=== PATIENT | female | born 1960 | race African-American/Black ===

== ENCOUNTER 2018-04-02 23:21 | Observation (INO) | payer MEDICAID ==
[2018-04-03 01:05] LABS: ABS Basophils 0.1 10^3/ul (0-0.2); ABS Eosinophils 0.1 10^3/ul (0-0.6); ABS Lymphocytes 2.2 10^3/ul (1.0-4.8); ABS Monocytes 0.5 10^3/ul (0-0.8); ABS Neutrophils 4.7 10^3/ul (1.5-7.7); ABS Nucleated RBC 0 10^3/ul; Eosinophil % 0.9 % (0-6); Hematocrit 38 % (35-47); Hemoglobin 12.2 g/dl (12.0-16.0); Lymphocyte % 29.1 % (25-47); Mean Corpuscular HGB Conc 33 g/dl (31-36); Mean Corpuscular Hemoglobin 26 pg (27-31); Mean Corpuscular Volume 80 fL (80-97); Nucleated Red Blood Cells % 0.1; Platelet Count 328 10^3/ul (150-450); Red Cell Distribution Width 17 % (10.5-15); White Blood Count 7.4 10^3/ul (3.5-10.8)
[2018-04-03 01:25] LABS: EGFR Non-African American 62.1 (>60); INR 0.85 (0.77-1.02)
[2018-04-03] MEDS ORDERED: Morphine VIAL* 4 MG/ML VIAL (1 ml vial) IV ONE (01:29)
[2018-04-03] MEDS ORDERED: NS 0.9% 1000 ML* 1,000 ML IV ONE (01:35)
[2018-04-03 02:39] LABS: Urine Appearance Clear; Urine Blood Negative (Negative); Urine Color Colorless; Urine Ketones Negative (Negative); Urine Protein Negative (Negative); Urine Specific Gravity 1.008 (1.010-1.030); Urine Urobilinogen Negative (Negative)
[2018-04-03] MEDS ORDERED: Tetan/Diph/Pertus SYR(Tdap)* 0.5 ML SYR(BOOSTRIX) use SYR IM ONE (04:27)
[2018-04-03] MEDS ORDERED: KCL 10 MEQ/50 ML IVPREMIX* 10 MEQ/50 ML BAG IV ONE (04:33)
[2018-04-03] MEDS ORDERED: Morphine VIAL* 4 MG/ML VIAL (1 ml vial) IV PRN (06:44)
[2018-04-03] MEDS ORDERED: Acetaminophen TAB* 325 MG PO PRN (06:44)
[2018-04-03 07:50] LABS: ABS Basophils 0 10^3/ul (0-0.2); ABS Eosinophils 0.1 10^3/ul (0-0.6); ABS Lymphocytes 1.7 10^3/ul (1.0-4.8); ABS Monocytes 0.6 10^3/ul (0-0.8); ABS Neutrophils 5.5 10^3/ul (1.5-7.7); ABS Nucleated RBC 0 10^3/ul; Hematocrit 34 % (35-47); Hemoglobin 11.4 g/dl (12.0-16.0); Lymphocyte % 21.6 % (25-47); Mean Corpuscular HGB Conc 33 g/dl (31-36); Mean Corpuscular Hemoglobin 27 pg (27-31); Mean Corpuscular Volume 80 fL (80-97); Mean Platelet Volume 8.2 um3 (7.4-10.4); Nucleated Red Blood Cells % 0.1; Platelet Count 317 10^3/ul (150-450); Red Cell Distribution Width 17 % (10.5-15)
--- NOTE | 2018-04-03 08:04 | RAD ---
INDICATION: Fall. CT of the brain, facial bones, cervical spine, thoracic spine, lumbar spine, and chest/abdomen/pelvis. Pending request for CTA of the chest COMPARISON: None TECHNIQUE: Axial source images were obtained from the thoracic inlet to the symphysis pubis following administration of oral contrast only. 105 mL Omnipaque 300 was utilized. Coronal and sagittal reconstructed images were acquired. CHEST FINDINGS: Neck/thyroid: The visualized neck to include the thyroid appear normal. Chest wall: There are no acute abnormalities of the bony thorax or chest wall. There is no supraclavicular, infraclavicular, or axillary lymphadenopathy. Lungs : There are no pulmonary parenchymal masses or infiltrates. There is mild gravity dependent atelectasis. There is no pneumothorax. The pulmonary interstitium appears normal. There are no endobronchial lesions. Cardiomediastinal structures: The heart is normal in size. There is no pericardial effusion. There is no evidence of aortic aneurysm or dissection. The pulmonary vessels appear normal. There is no mediastinal or hilar adenopathy. The esophagus appears normal. Pleura : There are no pleural-based masses or effusions. ABDOMINAL/PELVIC FINDINGS: Liver: The liver is normal in size. There are no masses. There is no ductal dilatation. Gallbladder: Cholecystectomy. Spleen: The spleen is normal in size. There are no masses. Pancreas: There is no evidence of pancreatic mass or ductal dilatation. Adrenal glands: There is no evidence of adrenal mass. Kidneys: The kidneys are normal in size and position. There are prompt nephrograms and there is prompt excretion bilaterally. There are no renal parenchymal masses. There is no evidence of nephrolithiasis. Adenopathy: There is no evidence of adenopathy by size criteria. Fluid collections: There are no free or localized fluid collections. Vessels:The aorta and IVC appear normal GI tract: The bowel is limited as no oral contrast was given per ED request. There are moderate diverticula of the colon without CT findings specific for acute diverticulitis. The appendix is visualized and appears normal. The terminal ileum and ileocecal valve are normal. There is a small hiatal hernia. Pelvic organs: The uterus and adnexa appear normal Bladder: There are no bladder masses. Abdominal and pelvic soft tissues: The extraperitoneal abdominal and pelvic soft tissues appear normal.. Osseous structures: There are no acute osseous findings. IMPRESSION: NO ACUTE CT FINDINGS OF THE CHEST /ABDOMEN, OR PELVIS. SCATTERED DIVERTICULA. Small hiatal hernia.
[2018-04-03 08:24] LABS: EGFR Non-African American 83.5 (>60)
--- NOTE | 2018-04-03 08:37 | RAD ---
INDICATION: Fall. Possible back injury. COMPARISON: CT chest/abdomen/pelvis same date TECHNIQUE: Noncontrast axial source images was performed from the thoracic inlet to the level the hemidiaphragms. Coronal and and sagittal reformatted images were generated. FINDINGS: Vertebrae: There is no fracture or acute focal bony lesion. Alignment: The thoracic vertebrae are normally aligned. Central Canal: There are no significant CT abnormalities of the central canal or foramina. MR imaging is a more sensitive method to evaluate the canal and foramina. Intervertebral disc spaces: The disc spaces are maintained. Soft tissues: There are no paravertebral soft tissue abnormalities. IMPRESSION: NO THORACIC SPINE FRACTURE
--- NOTE | 2018-04-03 08:39 | RAD ---
INDICATION: Fall. Back pain COMPARISON: CT chest/abdomen/pelvis same date TECHNIQUE: Noncontrast axial source images was performed from the thoracolumbar junction to the sacrum. Coronal and and sagittal reformatted images were generated. FINDINGS: Vertebrae: There is no fracture or acute focal bony lesion. Alignment: The there is mild levoscoliosis. Central Canal: There are no significant CT abnormalities of the central canal or foramina. MR imaging is a more sensitive method to evaluate the canal and foramina. Intervertebral disc spaces: The disc spaces are maintained. Soft tissues: The paravertebral soft tissues are normal. Other: None IMPRESSION: NO ACUTE LUMBAR SPINE FRACTURE.
--- NOTE | 2018-04-03 08:51 | RAD ---
INDICATION: Facial injury. Evaluate for intracranial injury. COMPARISON: None TECHNIQUE: Noncontrast axial source images were acquired from the skull base to the vertex. FINDINGS: Ventricles/sulci: The ventricles and cisterns are normal in size and configuration for age. Brain parenchyma: There is no focal parenchymal finding, evidence of intracranial mass, or intracranial mass effect. Intracranial hemorrhage:None. Extra-axial spaces: There are no abnormal extra axial fluid collections or evidence of extra-axial mass. Calvarium: There is no calvarial fracture or other calvarial abnormality. Scalp: There is right suprarenal soft tissue swelling with a scalp hematoma and laceration. There is right-sided proptosis. Please refer to separate facial CT report. Paranasal sinuses/mastoid: Circumferential mucoperiosteal thickening right maxillary antrum. Ethmoid sinus disease. Other: None. IMPRESSION: No acute intracranial findings. Abnormalities about the right globe are described in a separate report.
[2018-04-03] MEDS: NS 0.9% w/ 20 Meq KCL 1000 ML* 1,000 ML IV SCH ×2 (08:59→23:03)
--- NOTE | 2018-04-03 09:23 | RAD ---
INDICATION: Fall. Facial injury. COMPARISON: None TECHNIQUE: Axial source images were acquired from the vertex of the mandible through the orbits. Coronal and sagittal reconstructed images were acquired. FINDINGS: Bones: There is a fracture the medial wall of the right orbit. There is orbital emphysema and proptosis. There are probably minimally displaced nasal bone fractures. There are no additional fractures.. Orbits: As noted above there is a fracture of the right orbit. There is emphysema with proptosis. There is no evidence of globe rupture. There is no retrobulbar mass. There is soft tissue swelling anterior and superior to the right orbit. Paranasal sinuses: Circumferential mucosal thickening right maxillary antrum. Opacification of multiple ethmoid air cells. Brain: There are no acute abnormalities of the visualized brain parenchyma. See separate report Soft tissues: Soft tissues prominence with subcutaneous emphysema and right supraorbital laceration Other: None The visualized soft tissue elements about the neck appear normal. IMPRESSION: FRACTURE THE MEDIAL WALL OF THE RIGHT ORBIT. ORBITAL EDEMA WITH PROPTOSIS. SUPRAORBITAL SOFT TISSUE SWELLING WITH LACERATION.
--- NOTE | 2018-04-03 09:23 | RAD ---
INDICATION: Fall. Possible neck injury. COMPARISON: None TECHNIQUE: Noncontrast axial source images was performed from the skull base to the thoracic inlet. Coronal and and sagittal reformatted images were generated. FINDINGS: Vertebrae: There is no fracture or acute focal bony lesion. Alignment: The craniocervical junction appears normal. The cervical vertebrae are normally aligned. Central Canal: There are no significant CT abnormalities of the central canal or foramina. MR imaging is a more sensitive method to evaluate the canal and foramina. Intervertebral disc spaces: The disc spaces are maintained. Brain: The visualized brain appears unremarkable. Soft tissues: The visualized soft tissue elements of the neck are unremarkable. The prevertebral soft tissues appear normal. The lung apices are clear. IMPRESSION: NO ACUTE CERVICAL SPINE FRACTURE
[2018-04-03] MEDS ORDERED: Iohexol 350* (CONTRAST) 500 ML MDV IV ONE (09:40)
--- NOTE | 2018-04-03 09:53 | RAD ---
INDICATION: Chest pain. Short of breath. Evaluate for pulmonary embolus. COMPARISON: CTA chest/abdomen/pelvis April 03, 2018 TECHNIQUE: Axial source images were obtained from the thoracic inlet to the hemidiaphragms following administration of [address] angiographic technique was utilized. Coronal and sagittal reconstructed images were acquired. CHEST FINDINGS: Neck/thyroid: The visualized neck to include the thyroid appear normal. Chest wall: There are no acute abnormalities of the bony thorax or chest wall. There is no supraclavicular, infraclavicular, or axillary lymphadenopathy. Lungs : There are no pulmonary parenchymal masses or infiltrates. The pulmonary interstitium appears normal. There are no endobronchial lesions. Cardiomediastinal structures: There is no CT evidence of acute pulmonary embolic disease. The heart is normal in size. There is no pericardial effusion. There is no evidence of aortic aneurysm or dissection. There is no mediastinal or hilar adenopathy. The esophagus appears normal. Pleura : There are no pleural-based masses or effusions. Other: None. IMPRESSION: NO CT EVIDENCE OF ACUTE PULMONARY EMBOLIC DISEASE. LUNGS CLEAR.
--- NOTE | 2018-04-03 13:04 | HP ---
ADMISSION HISTORY AND PHYSICAL: DATE OF ADMISSION: 04/03/18 CHIEF COMPLAINT: Fall. HISTORY OF PRESENT ILLNESS: Ms. John is a 57-year-old woman who was visiting [place] to celebrate her daughter's birthday when she was walking in her kitchen at home and then suddenly found herself on the floor. She injured her anterior chest and her left orbital area in the fall. The patient states she was feeling well prior to this episode of syncope. She had no fevers, URI, abdominal pain, diarrhea, or dysuria. She did not have any presyncopal feeling or palpitations prior to the loss of consciousness and fall. The patient denies any chest pain, although her chest feels tender to her in the left upper anterior chest. The patient denies any history of syncope. PAST MEDICAL HISTORY: She reports she has a brain aneurysm that is small. She has hypertension, osteoporosis, chronic headaches possibly migraines, hyperlipidemia and asthma. PAST SURGICAL HISTORY: She had a cholecystectomy in the past and her right ankle ORIF. MEDICATIONS: On admission are unclear, but she said she takes: 1. Calcium. 2. Amlodipine. 3. Aspirin. 4. Lipitor. FAMILY HISTORY: Mother had a stroke but she is alive. She has 2 sisters with diabetes and father of unknown causes. SOCIAL HISTORY: She is disabled. She is single. She has 17 children. She smokes about 3 cigarettes per day, drinks alcohol socially and no recreational drugs. REVIEW OF SYSTEMS: The patient denies any fevers, weight loss, anorexia. The patient denies any chest pain or palpitations. The patient denies any shortness of breath or cough. The patient denies any abdominal pain, nausea, vomiting, diarrhea, or constipation. The patient denies any dysuria or frequency. Remainder of a 14-point review of systems was negative other than mentioned in the HPI. PHYSICAL EXAMINATION GENERAL: She is an obese middle-aged woman, in no acute distress. VITAL SIGNS: Temperature is 37.1; pulse 91; respirations 19; blood pressure is 78/43 up to 83/58; oxygen saturation is 91%, it was as low as 89% on room air. HEENT: Head is normocephalic. She has clear trauma to her left orbital ridge. Her left eye is swollen shut. There is abrasion to her eyebrow, no deep laceration. There is some proptosis of her left eye. Oropharynx is moist. The right eye has extraocular muscles intact. Pupils are reactive. NECK: No adenopathy, no carotid bruits, no thyromegaly. LUNGS: Clear to auscultation and percussion bilaterally. HEART: Regular rate and rhythm without murmurs or gallops. ABDOMEN: Soft, nontender. Positive bowel sounds. No hepatosplenomegaly. EXTREMITIES: No peripheral edema. Dorsalis pedis pulses are 1+ bilaterally. NEUROLOGIC: Cranial nerves II through XII were intact. Motor strength was 5/5 throughout. Deep tendon reflexes were symmetric. DIAGNOSTIC STUDIES/LAB DATA: Sodium 134, potassium 3.0, chloride 99, bicarb 21 , BUN 7, creatinine 0.93, glucose 115, calcium 9.5, albumin 4.0, AST 45, ALT 30 , bilirubin 4.6. Lactic acid is 3.0 and then 2.0 on repeat. BNP level is 146. White count of 7.4, hemoglobin 12.2, hematocrit 38%, platelets are 328,000. Urinalysis was negative. EKG shows normal sinus rhythm, normal axis and nonspecific T wave flattening in V5 and V6. Head CT showed no infarct. CT of chest, abdomen, and pelvis with contrast showed no dissection of aorta. No acute thoracic or abdominopelvic pathology. She has left orbital fracture visible on head CT, medial wall of the orbit. CT of the cervical, thoracic and lumbar spine shows no acute fractures. ASSESSMENT AND PLAN: 1. A 57-year-old woman with syncope. Differential would include a vagal episode, arrhythmia, sepsis, seizure, alcohol overuse. The patient will be admitted to the hospital and observed on telemetry. As the patient may have arrhythmia as a cause of syncope, this patient will have serial troponins to rule out cardiac ischemia as a cause of her syncope and hypotension. The hypotension and hypoxia raised concern about pulmonary embolism or myocardial infarction. The patient will have a D-dimer test on and we are going to get either a CT of the chest or a V/Q scan to assess her for pulmonary emboli. For now, for DVT prophylaxis, we will hold off on giving blood thinners, not give Lovenox and we will give sequential compression devices. 2. For her orbital fracture, Dr. Ling has spoken to Dr. Woodward, Ophthalmology and they reviewed the CT scan. They feel that she needs outpatient management of this orbital fracture and nothing immediate needs to be done. 3. The patient has low potassium. This will be repleted and rechecked. She will continue infusion of fluid from fluid resuscitation given her hypotension and the risk of sepsis. At the moment, I am electing not to start her on antibiotics for sepsis because she is afebrile, normal white count, and there is no clear infectious source but we will keep the differential open. 4. Code status is full. [id number]/CPS #: [id number] MTDD
[2018-04-03] MEDS ORDERED: oxyCODONE/Acetamin 5/325 MG* TAB PO PRN (17:05)
--- NOTE | 2018-04-03 17:12 | PN ---
Subjective Date of Service: 04/03/18 Interval History: Pt seen and examined. Meds and labs reviewed. ROS: Complains of excruciating head and back pain on movement.Denied MINAYA/ dizziness, F/C, N/V, CP, SOB, increased cough, sputum production, abd pain, diarrhea, constipation, dysuria, myalgias, arthralgias, throat pain, and new skin lesions. The rest of the 14 point ROS are unremarkable. PHYSICAL EXAM: GEN APPEARANCE: Awake, not in acute distress HEENT: NC/swollen eyes, more on L than R, PERRLA, moist oral mucosa, (-) throat erythema NECK: Soft, supple, (-) cervical LAD, (-)JVD HEART: S1S2 WNL, RRR, No MRG CHEST: CTA, BL, GAE, No W/R/R ABD: Soft, ND/NT, NABS 4x Q EXT: No C/C/E SKIN: Warm to touch PSYCH: No active psychosis, hallucinations, depression, SI/HI Objective Active Medications: Acetaminophen (Tylenol Tab*) 650 mg PO Q4H PRN PRN Reason: FEVER/HEADACHE Acetaminophen (Tylenol Tab*) 1,000 mg PO BID TRICIA Gabapentin (Neurontin Tab(Nf)) 200 mg PO TID TRICIA Potassium Chloride/Sodium Chloride (Ns 0.9% W/ 20 Meq Kcl 1000 Ml*) 1,000 mls @ 100 mls/hr IV PER RATE TRICIA Last Admin: 04/03/18 08:59 Dose: 100 mls/hr Morphine Sulfate (Morphine Vial*) 2 mg IV Q2H PRN PRN Reason: PAIN Last Admin: 04/03/18 08:59 Dose: 2 mg Oxycodone/Acetaminophen (Percocet 5/325 Tab*) 1 tab PO Q6H PRN PRN Reason: PAIN Vital Signs - 8 hr 04/03/18 04/03/18 09:59 11:18 Temperature 98.2 F Pulse Rate 98 Respiratory 18 16 Rate Blood Pressure 128/76 (mmHg) O2 Sat by Pulse 98 Oximetry Oxygen Devices in Use Now: None Result Diagrams: 04/03/18 07:42 04/03/18 07:27 Assess/Plan/Problems-Billing Assessment: - Patient Problems (1) Syncope Current Visit: Yes Status: Acute Code(s): R55 - SYNCOPE AND COLLAPSE SNOMED Code(s): 473546338 Comment: -Denies any prodrome -Will order orthostatic VS, Echocardiogram, and carotid dopplers -Troponin (-) x3 -CTA of Chest (-) PE -Continue telemetry (2) Pain Current Visit: Yes Status: Acute Code(s): R52 - PAIN, UNSPECIFIED SNOMED Code(s): 07824758 Comment: #Head and neck pain: -Will place pt on Gabapentin and Tylenol for synergy -Continue PRN Percocet (3) Orbital fracture Current Visit: Yes Status: Acute Code(s): S02.80XA - FX OTH SKULL AND FACIAL BONES, UNSPECIFIED SIDE, INIT SNOMED Code(s): 02961858 Comment: -Dr. Ling has spoken to Dr. Woodward (Opthalmologist) who reviewed CT scan and advised outpatient F/U and will defer (4) DVT prophylaxis Current Visit: Yes Status: Acute Code(s): YLH7297 - SNOMED Code(s): 761785997 Comment: -Continue SCDs Status and Disposition: -For PT eval
[2018-04-03] MEDS ORDERED: oxyCODONE TAB* 5 MG TAB PO PRN (18:03)
[2018-04-03] MEDS: Gabapentin CAP(*) 100 MG PO SCH (19:42)
[2018-04-03] MEDS ORDERED: Acetaminophen TAB* 325 MG PO SCH (21:00)
--- NOTE | 2018-04-03 21:56 | ED ---
Arpit Gaitan Tariq, scribed for Marita Ling MD on 04/03/18 at 0218 . Syncope/Near Syncope - HPI Summary HPI Summary: A 57 y/o female SAVANNA presents to the ED c/o LOC. Additionally c/o severe back and neck pain. According to the pt, she passed out at a family members house which was witnessed. Pt denies abdominal paain and CP. Pt stated that she has severe pain in the back of her head and neck. As per triage, "Pt presents with transient syncopal episode witnessed by family. Contusion noted to left forehead -eye. Co pain at the site. Denies N/V. Co cervical tenderness. Denies dizziness , lightheadedness or CP prior to syncope". It was noted that the pt was drinking at a birthday libertarian. Pt denies any episode previous to this one. Currently on no oxygen. No PMHx of DM and IN, however PMHx of High BP. No allergies to medications. - History Of Current Complaint Chief Complaint: EDSyncope Time Seen by Provider: 04/03/18 00:47 Hx Obtained From: Patient Onset/Duration: Sudden Onset, Still Present - Neck and Back pain Timing: Constant Context: Witnessed - Family, Loss Of Consciousness Aggravating Factor(s): Position Change Alleviating Factor(s): Nothing - Allergies/Home Medications Allergies/Adverse Reactions: Allergies Allergy/AdvReac Type Severity Reaction Status Date / Time No Known Allergies Allergy Verified 04/03/18 00:42 Home Medications: Home Medications NK [No Home Medications Reported] 04/03/18 [History Confirmed 04/03/18] PMH/Surg Hx/FS Hx/Imm Hx Endocrine/Hematology History: Denies: Hx Diabetes Cardiovascular History: Denies: Hx Hypertension Infectious Disease History: No Infectious Disease History: Denies: Traveled Outside the [place] in Last 30 Days - Family History Known Family History: Negative: Diabetes - Social History Alcohol Use: Occasionally Substance Use Type: Reports: None Smoking Status (MU): Heavy Every Day Tobacco Smoker Review of Systems Negative: Fever Negative: Chest Pain Negative: Abdominal Pain Positive: Other - POSITIVE: neck pain, back pain Neurological: Other - NEGATIVE: Dizziness, lightheadedness Positive: Headache All Other Systems Reviewed And Are Negative: Yes Physical Exam - Summary Physical Exam Summary: GENERAL: Patient is a well developed and nourished female who is lying comfortable in the stretcher. Patient is not in any acute respiratory distress. HEAD AND FACE: Normocephalic EYES: PERRLA, EOMI x 2. EARS: Hearing grossly intact. MOUTH: Oropharynx within normal limits. NECK: Supple, trachea is midline, no adenopathy, no JVD, no carotid bruit. CHEST: Symmetric, no tenderness at palpation LUNGS: Clear to auscultation bilaterally. No wheezing or crackles. CVS: Regular rate and rhythm, S1 and S2 present, no murmurs or gallops appreciated. ABDOMEN: Soft, non-tender. Bowel sounds are normal. No abdominal abnormal pulsations. EXTREMITIES: Full ROM in all major joints, no edema, no cyanosis or clubbing. NEURO: Alert and oriented x 3. No acute neurological deficits. Speech is normal and follows commands. SKIN: Dry and warm Neuro exam extended: Cranial nerves II-XII grossly intact, no dysmetria finger to nose, nml heel to morales. Tenderness to palpation entire spine. Skin: Abrasion left eye with hematoma Triage Information Reviewed: Yes Vital Signs On Initial Exam: Initial Vitals Pulse BP Pulse Ox 87 122/82 91 04/02/18 23:36 04/02/18 23:36 04/02/18 23:36 Vital Signs Reviewed: Yes Diagnostics - Vital Signs Vital Signs Temp Pulse Resp BP Pulse Ox 04/03/18 01:38 16 04/03/18 01:36 89 19 119/84 96 04/03/18 01:06 82 19 121/81 91 04/03/18 01:00 84 21 92 04/03/18 00:36 81 15 122/80 89 04/03/18 00:33 98.7 F 82 15 127/82 98 04/03/18 00:06 84 113/79 88 04/03/18 00:00 80 89 04/02/18 23:36 87 122/82 91 - Laboratory Lab Results: Lab Results 04/03/18 04/03/18 04/03/18 Range/Units 00:51 00:51 00:51 WBC 7.4 (3.5-10.8) 10^3/ul RBC 4.70 (4.00-5.40) 10^6/ul Hgb 12.2 (12.0-16.0) g/dl Hct 38 (35-47) % MCV 80 (80-97) fL MCH 26 L (27-31) pg MCHC 33 (31-36) g/dl RDW 17 H (10.5-15) % Plt Count 328 (150-450) 10^3/ul MPV 8.0 (7.4-10.4) um3 Neut % (Auto) 62.8 (38-83) % Lymph % (Auto) 29.1 (25-47) % Barnes % (Auto) 6.3 (0-7) % Eos % (Auto) 0.9 (0-6) % Baso % (Auto) 0.9 (0-2) % Absolute Neuts (auto) 4.7 (1.5-7.7) 10^3/ul Absolute Lymphs (auto) 2.2 (1.0-4.8) 10^3/ul Absolute Monos (auto) 0.5 (0-0.8) 10^3/ul Absolute Eos (auto) 0.1 (0-0.6) 10^3/ul Absolute Basos (auto) 0.1 (0-0.2) 10^3/ul Absolute Nucleated RBC 0 10^3/ul Nucleated RBC % 0.1 INR (Anticoag Therapy) 0.85 (0.77-1.02) APTT 32.0 (26.0-36.3) seconds Sodium 134 L (135-145) mmol/L Potassium 3.0 L (3.5-5.0) mmol/L Chloride 99 L (101-111) mmol/L Carbon Dioxide 21 L (22-32) mmol/L Anion Gap 14 H (2-11) mmol/L BUN 7 (6-24) mg/dL Creatinine 0.93 (0.51-0.95) mg/dL Est GFR ( Amer) 75.2 (>60) Est GFR (Non-Af Amer) 62.1 (>60) BUN/Creatinine Ratio 7.5 L (8-20) Glucose 115 H (70-100) mg/dL Lactic Acid (0.5-2.0) mmol/L Calcium 9.5 (8.6-10.3) mg/dL Total Bilirubin 1.60 H (0.2-1.0) mg/dL AST 45 H (13-39) U/L ALT 30 (7-52) U/L Alkaline Phosphatase 75 (34-104) U/L Troponin I 0.00 (<0.04) ng/mL Total Protein 7.5 (6.4-8.9) g/dL Albumin 4.0 (3.2-5.2) g/dL Globulin 3.5 (2-4) g/dL Albumin/Globulin Ratio 1.1 (1-3) Serum Alcohol 146 H (<10) mg/dL Blood Type Antibody Screen 04/03/18 04/03/18 04/03/18 Range/Units 00:51 00:51 01:37 WBC (3.5-10.8) 10^3/ul RBC (4.00-5.40) 10^6/ul Hgb (12.0-16.0) g/dl Hct (35-47) % MCV (80-97) fL MCH (27-31) pg MCHC (31-36) g/dl RDW (10.5-15) % Plt Count (150-450) 10^3/ul MPV (7.4-10.4) um3 Neut % (Auto) (38-83) % Lymph % (Auto) (25-47) % Barnes % (Auto) (0-7) % Eos % (Auto) (0-6) % Baso % (Auto) (0-2) % Absolute Neuts (auto) (1.5-7.7) 10^3/ul Absolute Lymphs (auto) (1.0-4.8) 10^3/ul Absolute Monos (auto) (0-0.8) 10^3/ul Absolute Eos (auto) (0-0.6) 10^3/ul Absolute Basos (auto) (0-0.2) 10^3/ul Absolute Nucleated RBC 10^3/ul Nucleated RBC % INR (Anticoag Therapy) (0.77-1.02) APTT (26.0-36.3) seconds Sodium (135-145) mmol/L Potassium (3.5-5.0) mmol/L Chloride (101-111) mmol/L Carbon Dioxide (22-32) mmol/L Anion Gap (2-11) mmol/L BUN (6-24) mg/dL Creatinine (0.51-0.95) mg/dL Est GFR ( Amer) (>60) Est GFR (Non-Af Amer) (>60) BUN/Creatinine Ratio (8-20) Glucose (70-100) mg/dL Lactic Acid 3.0 H* 2.9 H* (0.5-2.0) mmol/L Calcium (8.6-10.3) mg/dL Total Bilirubin (0.2-1.0) mg/dL AST (13-39) U/L ALT (7-52) U/L Alkaline Phosphatase (34-104) U/L Troponin I (<0.04) ng/mL Total Protein (6.4-8.9) g/dL Albumin (3.2-5.2) g/dL Globulin (2-4) g/dL Albumin/Globulin Ratio (1-3) Serum Alcohol (<10) mg/dL Blood Type B Positive Antibody Screen Negative Result Diagrams: 04/03/18 07:42 04/03/18 07:27 Lab Statement: Any lab studies that have been ordered have been reviewed, and results considered in the medical decision making process. - CT BRAIN CT CT Interpretation Completed By: Radiologist - FRACTURE OF THE RIGHT ORBIT MEDIAL WALL WITH ORBITAL EMPHYSEMA AND PROPTOSIS. ED PHYSICIAN REVIEWED THIS RADIOLOGY REPORT. LUMBAR CT CT Interpretation Completed By: Radiologist - NO LUMBAR SPINE FRACTURE. ED PHYSICIAN REVIEWED THIS RADIOLOGY REPORT. CT CHEST ABDOMEN PELVIS CT Interpretation: No Acute Changes CT Interpretation Completed By: Radiologist - NO ACUTE FINDINGS. ED PHYSICIAN REVIEWED THIS RADIOLOGY REPORT. THORACIC CT CT Interpretation Completed By: Radiologist - NO THORACIC SPINE FRACTURE. ED PHYSICIAN REVIEWED THIS RADIOLOGY REPORT. MAXILLOFACIAL CT CT Interpretation Completed By: Radiologist - FRACTURE OF THE MEDIAL WALL OF THE RIGHT ORBIT. ED PHYSICIAN REVIEWED THIS RADIOLOGY REPORT. CERVICAL CT CT Interpretation Completed By: Radiologist - NO CERVICAL SPINE FRACTURE. ED PHYSICIAN REVIEWED THIS RADIOLOGY REPORT. - EKG 0042 Cardiac Rate: NL - 83 BPM EKG Rhythm: Sinus Rhythm EKG Interpretation: NON-SPECIFC T-WAVE CHANGES Re-Evaluation - Re-Evaluation First Eval Re-Evaluation Time: 05:00 Comment: PATIENT COMPLAINS OF PAIN. DR. LING REPAIRED DERMA AND STERISTRIP. ABRASION IS 1 CM ABOVE RIGHT EYE. GOOD EXTRA OCCULAR MOVEMENT. Patient's systolic blood pressures in the pain is and she is hypoxic satting 89 and room air and so will be admitted Course/Dx Course Of Treatment: 57-year-old female who is presenting to the emergency room with head injury after syncopal episode that occurred at home. Patient admits to drinking a few beers. A full trauma scan was obtained which was consistent with a fracture of the left medial orbital wall with proptosis but no retro- orbital hematoma. I discussed the results of the patient in great details. I did speak with Dr. Woodward of ophthalmology who said nothing to do given the patient has full extraocular movement and no visual deficits. Patient is hypotensive and hypoxic on room air and so will be admitted for further evaluation of syncope. Case discussed with hospitalist. Results and plan of care discussed with patient. - Diagnoses Provider Diagnoses: Syncope and collapse Discharge - Sign-Out/Discharge Documenting (check all that apply): Discharge/Admit/Transfer - ADMIT - Discharge Plan Condition: Stable Disposition: ADMITTED TO [facility] - Billing Disposition and Condition Condition: STABLE Disposition: Admitted to [facility] The documentation as recorded by the Aript delgadillo Tariq accurately reflects the service I personally performed and the decisions made by me, Marita Ling MD.
[2018-04-04 05:46] LABS: ABS Basophils 0 10^3/ul (0-0.2); ABS Eosinophils 0.1 10^3/ul (0-0.6); ABS Lymphocytes 2.3 10^3/ul (1.0-4.8); ABS Monocytes 0.5 10^3/ul (0-0.8); ABS Neutrophils 3.2 10^3/ul (1.5-7.7); ABS Nucleated RBC 0 10^3/ul; Eosinophil % 2.1 % (0-6); Hematocrit 34 % (35-47); Lymphocyte % 37.3 % (25-47); Mean Corpuscular HGB Conc 33 g/dl (31-36); Mean Corpuscular Hemoglobin 26 pg (27-31); Mean Corpuscular Volume 80 fL (80-97); Mean Platelet Volume 7.9 um3 (7.4-10.4); Nucleated Red Blood Cells % 0; Platelet Count 317 10^3/ul (150-450); Red Blood Count 4.22 10^6/ul (4.00-5.40); Red Cell Distribution Width 17 % (10.5-15); White Blood Count 6.2 10^3/ul (3.5-10.8)
[2018-04-04 06:07] LABS: EGFR Non-African American 99.2 (>60)
[2018-04-04] MEDS: Gabapentin CAP(*) 100 MG PO SCH ×2 (06:30→07:04)
[2018-04-04] MEDS: Acetaminophen TAB* 325 MG PO SCH ×2 (06:31→07:04)
[2018-04-04 07:48] VITALS: BP 138/77
--- NOTE | 2018-04-04 12:52 | ECHO ---
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 Technical Comments: The study quality is good. Completed at 1120. Left Ventricle: The left ventricular chamber size is normal. Global left ventricular wall motion and contractility are within normal limits. There is normal left ventricular systolic function. The estimated ejection fraction is 55-60%. Normal left ventricular diastolic filling is observed. Left Atrium: The left atrial chamber size is normal. Right Ventricle: The right ventricular cavity size is normal. The right ventricular global systolic function is normal. Right Atrium: The right atrial cavity size is normal. Aortic Valve: The aortic valve is trileaflet. There is no evidence of aortic regurgitation. There is no evidence of aortic stenosis. Mitral Valve: The mitral valve leaflets appear normal. There is a trace of mitral regurgitation. There is no evidence of mitral stenosis. Tricuspid Valve: The tricuspid valve leaflets are normal. There is trace tricuspid regurgitation. The right ventricular systolic pressure is estimated at 37 mmHg. There is evidence of mild pulmonary hypertension. There is no tricuspid stenosis. Pulmonic Valve: The pulmonic valve appears normal. There is trace to mild pulmonic regurgitation. There is no pulmonic stenosis. Pericardium: A pericardial fat pad is visualized. Aorta: There is no dilatation of the ascending aorta. There is no dilatation of the aortic arch. There is no dilation of the aortic root. Pulmonary Artery: The main pulmonary artery appears normal. Venous: The venous system is not well visualized. Conclusions The left ventricular chamber size is normal. Global left ventricular wall motion and contractility are within normal limits. The estimated ejection fraction is 55-60%. The right ventricular global systolic function is normal. There is a trace of mitral regurgitation. The right ventricular systolic pressure is estimated at 37 mmHg. No prior echo to compare. Measurements Name Value Normal Range RVIDd (AP) 2D 3 cm (0.9 - 2.6) RVDdMajor (2D) 3.4 cm (2.2 - 4.4) RAd ISD 4CH 4.4 cm (3.4 - 4.9) IVSd (2D) 1.1 cm (0.6 - 1) LVPWd (2D) 1 cm (0.6 - 1) LVIDd (2D) 4 cm (3.6 - 5.4) LVIDs (2D) 3 cm - LV FS (2D) 26 % (25 - 45) Aortic Annulus 1.6 cm (1.4 - 2.6) Ao root diameter (2D) 2.9 cm (2.1 - 3.5) Ascending Ao 3.1 cm (2.1 - 3.4) Aortic arch 2.2 cm (1.8 - 3.4) Descending Ao 0.6 cm - LA dimension (AP) 2D 3.7 cm (2.3 - 3.8) LAd ISD 4CH 4.8 cm (2.9 - 5.3) LA ISD 4CH W 3.3 cm (2.5 - 4.5) Name Value Normal Range LA ESV SP 4CH (A/L) 28 ml - LA ESV SP 2CH (A/L) 53 ml - LA ESV BP (A/L) 42 ml - LA ESV BP (A/L) index 22.69 ml/m2 - LA ESV SP 4CH (MOD) 28 ml - LA ESV SP 2CH (MOD) 50 ml - Name Value Normal Range MV E-wave Vmax 0.7 m/sec - MV deceleration time 240 msec - MV A-wave Vmax 1.1 m/sec - MV E:A ratio 0.66 ratio - LV septal e' Vmax 0.07 m/sec - LV lateral e' Vmax 0.09 m/sec - LV E:e' septal ratio 10 ratio - LV E:e' lateral ratio 7.78 ratio - Name Value Normal Range AV Vmax 1.3 m/sec - AV VTI 25.9 cm - AV peak gradient 6.5 mmHg - AV mean gradient 2.31 mmHg - LVOT Vmax 0.9 m/sec - LVOT VTI 19.6 cm - LVOT peak gradient 3.58 mmHg - LVOT mean gradient 1.81 mmHg - Name Value Normal Range TR Vmax 2.2 m/sec - TR peak gradient 19 mmHg - RAP 8 mmHg - RVSP 37 mmHg - Name Value Normal Range PV Vmax 0.8 m/sec - PV peak gradient 2.3 mmHg -
--- NOTE | 2018-04-04 20:29 | DS ---
DISCHARGE SUMMARY: DATE OF ADMISSION: 04/03/18 DATE OF DISCHARGE: 04/04/18 HOSPITAL COURSE: This 57-year-old woman had syncope while preparing dinner on 04/02/18. Her daughter was there and saw her, the patient sneezed and then suddenly fell over. She woke within a few seconds at most. The patient does not recall hitting the ground. She sustained bruising and pain in the left orbital area. Evaluation in the ER showed a left orbital fracture. She had an echocardiogram, the results of which are pending at this time. She had CT scan of the entire spine, abdomen, pelvis as well as a CTA of the chest and CTA of the brain. These findings were negative. She had little pain at all on the day of discharge. Extraocular muscles were intact. She did not have any double vision. There was visible swelling on the superior lateral orbit superficially and much tenderness there; however, she did not require any analgesics at the time of discharge. She states she takes a blood pressure pill every day, she did not know the name of it. She did not get any blood pressure medicine in the hospital. Orthostatic vital signs were normal. Blood pressure on the day of discharge was 138/77. I instructed her not to take a blood pressure medicine until she is seen by her primary care physician in [place]. She was also told that she should see a plastic surgeon for evaluation of her orbital fracture. She will have the report as well as a CD-ROM of her maxillofacial CT scan. DISCHARGE DIAGNOSES: 1. Syncope likely related to cough. 2. Left orbital fracture. 3. History of hypertension. DISCHARGE MEDICATIONS: None. [id number]/[facility] #: [id number] [place]
== END 2018-04-04 13:36 | disposition home or self-care (01) ==
LOC: ED 23:21 → MEDTELE 04-03 07:20
PROVIDERS: ADMIT Internal Medicine; ATTEND Internal Medicine
DX: R55 Syncope and collapse (principal); S02.82XA Fracture of other specified skull and facial bones, left side, initial encounter for closed fracture; W18.39XA Other fall on same level, initial encounter; Y92.000 Kitchen of unspecified non-institutional (private) residence as the place of occurrence of the external cause; I10 Essential (primary) hypertension; Z23 Encounter for immunization; M54.9 Dorsalgia, unspecified; M54.2 Cervicalgia; R09.02 Hypoxemia; F17.210 Nicotine dependence, cigarettes, uncomplicated
CPT/HCPCS: 36415; 70450; 70486; 71260; 71275; 72125; 72128; 72131; 74177; 80048; 80053; 80320; 81003; 82306; 83605; 83735; 84100; 84443; 84484; 85025; 85379; 85610; 85730; 86850; 86900; 86901; 90471; 90715; 93005; 93306; 96361; 96374; 96376; 99284; 99406; A9270-GY; G0378; G0480; J2270; J3480; Q9967